=== PATIENT | male | born 1970 | race Two or more races ===

== ENCOUNTER 2025-05-21 17:24 | Emergency (ER) | payer BC, SELFPAY ==
[2025-05-21 17:25] VITALS: BMI 28.2
[2025-05-21 17:36] VITALS: BP 159/88; PULSE 94; RESP 18; TEMP 37; O2SAT 96
--- NOTE | 2025-05-21 18:14 | PD.EDRME ---
Rapid Medical Screening Exam RME Arrival date/time: 05/21/25 17:24 Chief Complaint: Animal Bite Time Seen by Provider: 05/21/25 18:03 Vital signs: Vital Signs Temperature 98.6 F 05/21/25 17:36 Pulse Rate 94 05/21/25 17:36 Respiratory Rate 18 05/21/25 17:36 Blood Pressure 159/88 H 05/21/25 17:36 Pulse Oximetry (%) 96 05/21/25 17:36 Oxygen Delivery Method Room Air 05/21/25 17:36 Vital signs reviewed by provider: Yes RME Narrative: 55-year-old male presents to the ED with a complaint of left hand dog bite. It is unknown if the dog is up-to-date on his immunizations. Patient states his last tetanus was approximately 2 years ago. He denies any numbness or tingling distally. I have greeted and performed a focused initial assessment of this patient. A comprehensive ED assessment and evaluation of the patient, analysis of all test results, and completion of the medical decision making process will be conducted by additional ED providers.
--- NOTE | 2025-05-21 18:49 | XR_ITS ---
Examination: Hand, left 3 views Technique: Hand AP, oblique, lateral 3 views Date and time of exam: May 21, 2025 1903 hours INDICATIONS: Dog bite to the hand today, pain FINDINGS: No acute fracture No dislocation No foreign body IMPRESSION: No acute fracture No foreign body
[2025-05-21] MEDS: KETOROLAC INJ 30 MG/ML VIAL IVP (18:56)
[2025-05-21] MEDS: LIDOCAINE HCL 1% 20 ML VIAL INFL ×2 (18:57→20:05)
--- NOTE | 2025-05-21 19:04 | EDNOTE_ITS ---
ED Animal Bite RME/HPI General Chief Complaint: Animal Bite Stated Complaint: BITE BY DOG ON THE STREET ON L) HAND Time Seen by Provider: 05/21/25 18:03 Arrival date/time: 05/21/25 17:24 RME / HPI RME / HPI narrative: 55-year-old male presents to the ED with a complaint of left hand dog bite. It is unknown if the dog is up-to-date on his immunizations. Patient states his last tetanus was approximately 2 years ago. He denies any numbness or tingling distally. I have greeted and performed a focused initial assessment of this patient. A comprehensive ED assessment and evaluation of the patient, analysis of all test results, and completion of the medical decision making process will be conducted by additional ED providers. This section includes all my notes and documentations, including HPI, PE, and ED course. Jose Coker MD HPI: 55yo male here with dog bite to his left hand just prior to arrival. He reports large wound with active bleeding. Can move and feel the fingers normally. No other complaints. ROS: All negative except as documented in HPI. Physical Exam: General: Alert and oriented. Eyes: Conjunctivae and lids clear. ENT: No nasal congestion. Neck: Supple. Lungs: No respiratory distress. Skin: Warm and dry. Neuro: Alert and oriented X 3. Left Hand: Over the 4th and 5th metatarsals, there is a 15.5 cm laceration involving the dorsal surface and palm surface. No NVT injury. I reviewed all diagnostic test results. My interpretation of the left hand x-ray is NAD. Blood tests are unremarkable. At this point, diagnoses include laceration of left hand and dog bite. Treatment here included laceration repair (see procedure note), Solumedrol 125 mg IV, Toradol 30 mg IV, Unasyn 3 g IV, Tdap, topical bacitracin, and IVF. Significant improvement noted. Provided good wound care instructions. Based on my best medical judgment, made decision no further evaluation or treatment indicated at this time. Patient understands and agrees to the discharge instructions customized and printed, see below. Discharge instructions from Dr. Coker: -- Your laceration was repaired with 9 stitches. -- Keep the current dressing intact for 48 hours. -- After 48 hours, change the dressing once daily. -- First remove the dressing gently. If it does not come off easily, run water through it until it comes off easily. -- Then gently wash with soap and water. -- After completely drying, apply antibiotic ointment and new dressing. -- Elevate above the heart level today and tomorrow as much as possible. Placing the hand on the head is a good method. -- See a private doctor on 05/23/2025 for recheck. To make sure you are healing without any complications. To make sure there is no damage to your tendons and nerves and arteries. -- See your doctor or return here in 7 days for suture removal. Total of 9 stitches. -- Seek immediate medical care with fever, spreading redness from the wound, not being able to move your fingers normally, or with any concerns. Jose Coker MD Related Data Previous Rx's ?Medication ?Instructions ?Recorded acetaminophen 300 mg-codeine 30 mg 2 tab PO Q8H PRN pa in #20 tabs 05/21/25 tablet amoxicillin 875 mg-potassium 1 tab PO BID 3 days #6 ta bs 05/21/25 clavulanate 125 mg tablet ibuprofen 800 mg tablet 800 mg PO Q8H PRN pain #30 t abs 05/21/25 Allergies Allergy/AdvReac Type Severity Reaction Status Date / Time No Known Allergies Allergy Verified 05/21/25 17:27 Review of Systems Review of Systems Systems Reviewed: All systems reviewed, normal except as documented Past Medical History Past Medical History CARDIAC: Negative Congestive Heart Failure RESPIRATORY: Negative Chronic Obstructive Pulmonary Disease (COPD) GENITOURINARY: Negative Renal Disease ENDOCRINE: Negative Diabetes Mellitus Type 1 or Diabetes Mellitus Type 2 Social History SMOKING STATUS: Never smoker ED Exam Narrative Physical exam: As noted in HPI. Course Quality Measures none Orders Category Date Time Status Saline [Insert IV] NOW Care 05/21/25 18:47 Completed Set Up Suture Tray STAT Care 05/21/25 18:49 Completed Wound Care [Wound Care] NOW Care 05/21/25 18:49 Completed XR hand LT 2V Stat Exams 05/21/25 18:49 Completed BMP [Basic Metabolic Panel] Stat Lab 05/21/25 18:48 Completed CBC Stat Lab 05/21/25 18:48 Completed Magnesium Stat Lab 05/21/25 18:48 Completed PT [Prothrombin Time with INR] Stat Lab 05/21/25 18:48 Completed PTT [Partial Thromboplastin Time] Stat Lab 05/21/25 18:48 Completed Ampicillin/Sulbac Inj [Unasyn Inj] 3 gm Med 05/21/25 18:47 Discontinued Sodium Chloride 0.9% (Pop) [NS 0.9% mini bag] 100 ml IV X1 Bacitracin Oint pkt Med 05/21/25 18:47 Discontinued 1 gm TOP X1 ONE Ketorolac Inj [Toradol Inj] Med 05/21/25 18:47 Discontinued 30 mg IVP X1 ONE Lidocaine 1% 20 ml [Xylocaine 1% 20 ML] Med 05/21/25 18:47 Discontinued 20 ml INFL X1 ONE Lidocaine 1% 20 ml [Xylocaine 1% 20 ML] Med 05/21/25 20:01 Discontinued 20 ml INFL X1 ONE MethylPREDNISolone.* [SoluMEDROL Inj] Med 05/21/25 18:47 Discontinued 125 mg IVP X1 ONE Sodium Chloride 0.9% 1000 ml [Ns] 1,000 ml Med 05/21/25 18:47 Discontinued IV 999 mls/hr TET,DIP/PERT AC (Adult)-Tdap [Boostrix Adult (Tdap) Med 05/21/25 18:47 Discontinued Vacc] 0.5 ml IMI .ONCE ONE Vital Signs Vital signs: Vital Signs Temperature 98.6 F 05/21/25 17:36 Pulse Rate 94 05/21/25 17:36 Respiratory Rate 18 05/21/25 17:36 Blood Pressure 159/88 H 05/21/25 17:36 Pulse Oximetry (%) 96 05/21/25 17:36 Oxygen Delivery Method Room Air 05/21/25 17:36 PROCEDURES: Laceration Laceration 1: Site: hand Side (If applicable): left Size (cm): 15.5 Description: linear Depth: involves muscle layer Local Anesthetic: lidocaine 1% Amount of anesthesia used (mL): 30 Pre-repair: irrigated extensively Skin layer closed with: nylon Suture size (cm): 3-0 Number of sutures: 9 Muscle layer closed with: vicryl Size: 3-0 Number of sutures: 3 Technique: simple, interrupted Animal Bite MDM Narrative MDM Narrative:: 55yo male here with dog bite to his left hand just prior to arrival. He reports large wound with active bleeding. Can move and feel the fingers normally. No other complaints. Patient data External records reviewed:: [facility] previous records (Per chart review, patient has no previous ED visits or admissions to this facility.) Clinical information provided by:: patient Social determinants that could affect healthcare access:: none Patient has the following chronic illnesses:: none How is presenting disease/condition affected by chronic disease/condition?: no chronic disease Evaluation data The following diagnostics were reviewed and interpreted by me:: lab results and radiology exam(s) Lab and/or radiology exams considered but not ordered:: none Interpretation Summary: I reviewed all diagnostic test results. My interpretation of the left hand x-ray is NAD. Blood tests are unremarkable. Medications / Prescriptions Medications or Prescriptions considered but not ordered:: none Medication administrations:: Medication Administration History Discontinued Medications Bacitracin (Bacitracin Oint 1 Gm Packet) 1 gm TOP X1 ONE Stop: 05/21/25 18:48 Last Admin: 05/21/25 19:55 Dose: 1 gm Documented By: CCT Diphtheria/Tetanus/Acell Pertussis (Diphth,Pertuss(Acell),Tet Vac 0.5 Ml Syr- Adult) 0.5 ml IMi .ONCE ONE Stop: 05/21/25 18:48 Last Admin: 05/21/25 19:50 Dose: 0.5 ml Documented By: RC Sodium Chloride (Ns) 1,000 mls @ 999 mls/hr IV .Q1H1M ONE Stop: 05/21/25 19:47 Last Infusion: 05/21/25 20:44 Dose: Infused Documented By: Admin: 05/21/25 19:47 Dose: 999 mls/hr Documented By: RC Ampicillin Sodium/Sulbactam (Sodium 3 gm/ Sodium Chloride) 100 mls @ 200 mls/hr IV X1 ONE Stop: 05/21/25 18:48 Last Infusion: 05/21/25 20:24 Dose: Infused Documented By: Admin: 05/21/25 19:50 Dose: 200 mls/hr Documented By: RAQUEL Ketorolac Tromethamine (Ketorolac Inj 30 Mg/Ml Vial) 30 mg IVP X1 ONE Stop: 05/21/25 18:48 Last Admin: 05/21/25 18:56 Dose: 30 mg Documented By: RAULITO Lidocaine HCl (Lidocaine Hcl 1% 20 Ml Vial) 20 ml INFL X1 ONE Stop: 05/21/25 18:48 Last Admin: 05/21/25 18:57 Dose: 20 ml Documented By: DB Lidocaine HCl (Lidocaine Hcl 1% 20 Ml Vial) 20 ml INFL X1 ONE Stop: 05/21/25 20:02 Last Admin: 05/21/25 20:05 Dose: 20 ml Documented By: CCT Comments: Administered by Dr. Coker Methylprednisolone Sodium Succinate (Methylprednisolone Sod Succ 62.5 Mg/Ml 2ml Vial) 125 mg IVP X1 ONE Stop: 05/21/25 18:48 Last Admin: 05/21/25 19:47 Dose: 125 mg Documented By: RC Treatment here included laceration repair (see procedure note), Solumedrol 125 mg IV, Toradol 30 mg IV, Unasyn 3 g IV, Tdap, topical bacitracin, and IVF. Consultations Consultation(s) initiated? (list below): No Diagnosis Differential diagnosis animal bite: dog bite and other (Laceration) Most likely diagnosis given after review of the tests above:: Laceration of left hand, Dog bite Admission Indicated Admission indicated?: not indicated Explain why admission is indicated or not indicated:: With significant improvement and no condition needing emergent intervention, there was no indication for admission. Admission Request Was there a request for admission?: No Disposition Plan Disposition Plan: Discharge Discharge Attestation Discharge Attestation: The patient and all family members were given an opportunity to ask questions and understood the discharge instructions. Discharge instructions specifically effects, indications for sooner follow up or return to the emergency department, and the expected course of current diagnosis. Patient condition: Stable Discharge Plan Plan Patient Disposition: HOME (Self Care) Prescriptions/Referrals Prescriptions/Med Rec: New ibuprofen 800 mg tablet 800 mg PO Q8H PRN (Reason: pain) Qty: 30 0RF acetaminophen-codeine 300-30 mg tablet 2 tab PO Q8H MDD 6 PRN (Reason: pain) Qty: 20 0RF amoxicillin-pot clavulanate 875-125 mg tablet 1 tab PO BID 3 Days Qty: 6 0RF Referrals: No Primary/Family,Physician [Primary Care Provider] - In 1 week Problem List Clinical Impression: Laceration of hand, left, Dog bite Patient/Caregiver Discharge Instructions Discharge Activity: activity as tolerated Education Materials: ED Dog Bite, ED Laceration, Hand: All Closures Additional Instructions: Discharge instructions from Dr. Coker:? -- Your laceration was repaired with 9 stitches. -- Keep the current dressing intact for 48 hours. -- After 48 hours, change the dressing once daily. -- First remove the dressing gently.? If it does not come off easily, run water through it until it comes off easily. -- Then gently wash with soap and water. -- After completely drying, apply antibiotic ointment and new dressing. -- Elevate above the heart level today and tomorrow as much as possible.? Placing the hand on the head is a good method. -- See a private doctor on 05/23/2025 for recheck. To make sure you are healing without any complications. To make sure there is no damage to your tendons and nerves and arteries. -- See your doctor or return here in 7 days for suture removal.? Total of 9 stitches. -- Seek immediate medical care with fever, spreading redness from the wound, not being able to move your fingers normally, or with any concerns. Instrucciones de hari del Dr. Coker: -- [place] laceraci?n fue reparada con 9 puntos de sutura. -- Mantenga el vendaje actual intacto farooq 48 horas. -- Despu?s de 48 horas, cambie el vendaje harmeet vez al d?a. -- Manas retire el vendaje con cuidado. Si no se desprende f?cilmente, l?velo con agua hasta que se desprenda f?cilmente. -- Luego, lave suavemente con agua y jab?n. -- Despu?s de secar completamente, aplique valdo?ento antibi?marcel y un vendaje nuevo. -- Eleve la herida por encima del nivel del coraz?n hoy y ma?jordan tanto shari sea posible. Colocar la mano sobre la sasha es un buen m?todo. -- Consulte con un m?dico particular el 02/23/2025 para harmeet nueva revisi?n. Para asegurarse de que se est? recuperando sin complicaciones. Para asegurarse de que no haya da?os en los tendones, nervios ni arterias. -- Consulte con lockett m?dico o regrese aqu? en 7 d?as para que le retiren los puntos de sutura. Total de 9 puntos de sutura. -- Busque atenci?n m?dica inmediata si tiene fiebre, enrojecimiento que se extiende desde la herida, no puede retail and restaurant associate los dedos con normalidad o tiene cualquier inquietud. Print Language: Urdu Stand Alone Forms: Joi Award Info., Patient Portal Info Letter
[2025-05-21 19:18] LABS: Basophils # (Auto) 0.0 Thou/mm3 (0.0-0.2); Basophils % (Auto) 1 % (0-2.5); Eosinophils # (Auto) 0.3 Thou/mm3 (0.0-0.5); Eosinophils % (Auto) 4 % (0-10); Hematocrit 44.4 % (41.0-53.0); Hemoglobin 15.5 g/dL (13.5-16.0); Immature Granulocytes Auto 0.02 Thou/mm3 (0.00-0.00); Lymphocytes # (Auto) 2.7 Thou/mm3 (1.0-4.8); Lymphocytes % (Auto) 36 % (10-50); Mean Corpuscular HGB Conc 34.9 g/dl (31.0-37.0); Mean Corpuscular Hemoglobin 31.6 pg (25.0-35.0); Mean Corpuscular Volume 91 fL (80-100); Monocytes # (Auto) 0.5 Thou/mm3 (0.0-0.8); Monocytes % (Auto) 6 % (0-12); Neutrophils # (Auto) 3.9 Thou/mm3 (1.8-7.7); Neutrophils % (Auto) 53 % (37-80); Nucleated Red Blood Cell # 0.00 Thou/mm3 (0.00-0.00); Nucleated Red Blood Cell % 0 /100 WBC (0); Platelet Count 236 Thou/mm3 (140-440); RDW Standard Deviation 41.1 fL (35.1-43.9); Red Blood Count 4.90 Miln/mm3 (4.50-5.90); White Blood Count 7.4 Thou/mm3 (3.8-10.6)
[2025-05-21 19:44] LABS: Anion Gap 13 (7-16); BUN/Creatinine Ratio 14 Ratio (12-20); Blood Urea Nitrogen 13 mg/dL (9-23); Calcium 9.1 mg/dL (8.3-10.6); Carbon Dioxide 20.7 mMol/L (20.0-31.0); Chloride 108 mMol/L (98-107); Creatinine (Component) 0.9 mg/dL (0.6-1.3); Estimated Creatinine Clearance 108.0 mL/min (>60); Glucose 103 mg/dL (74-106); Magnesium 2.0 mg/dL (1.6-2.6); Osmolality,Calculated 283 (275-295); Potassium 3.6 mMol/L (3.4-5.1); Sodium 142 mMol/L (136-145); eGFR > 60 See Note
[2025-05-21] MEDS: MethylPREDNISolone SOD SUCC 62.5 MG/ML 2ML VIAL 125 MG IVP (19:47)
[2025-05-21] MEDS: SODIUM CHLORIDE 0.9% 1000 ML 1,000 ML 999 ML IV (19:47)
[2025-05-21 19:48] LABS: INR 1.0 (0.9-1.3); Partial Thromboplastin Time 26.4 Seconds (22.0-36.0); Prothrombin Time 10.6 Seconds (9.0-12.2)
[2025-05-21] MEDS: AMPICILLIN/SULBAC INJ 3 GM in SODIUM CHLORIDE 0.9% (POP) 100 ML IV (19:50)
[2025-05-21] MEDS: DIPHTH,PERTUSS(ACELL),TET VAC 0.5 ML SYR- ADULT IMi (19:50)
[2025-05-21] MEDS: BACITRACIN OINT 1 GM PACKET TOP (19:55)
[2025-05-21 20:40] VITALS: BP 160/98; PULSE 85; RESP 18; TEMP 36.8; O2SAT 95
== END 2025-05-21 21:12 | disposition home or self-care (01) ==
PROVIDERS: Emergency Provider Emergency Medicine
DX: S61.412A Laceration without foreign body of left hand, initial encounter (principal); W54.0XXA Bitten by dog, initial encounter; Z23 Encounter for immunization
CPT/HCPCS: 12002; 36415; 73120; 80048; 83735; 85025; 85610; 85730; 90471; 90715; 96365; 96375; 99284; J0295; J1885; J2919; J3490; J7030; A9270